=== PATIENT | male | born 1985 | race Caucasian/White ===

== ENCOUNTER 2016-07-27 07:47 | Emergency (ER) | payer SELFPAY ==
[~2016-07-27] VITALS: Ht 167.6 cm; Wt 80.3 kg
[2016-07-27 08:17] VITALS: BP 135/72
== END 2016-07-27 08:17 | disposition home or self-care (01) ==
LOC: ED 07:47
DX: H92.02 Otalgia, left ear (principal)

== ENCOUNTER 2016-09-10 17:26 | Emergency (ER) | payer SELFPAY ==
[~2016-09-10] VITALS: Ht 167.6 cm; Wt 78.0 kg
[2016-09-10 19:04] LABS: BASOPHIL % 0.5 % (0-2); PLATELET COUNT 194 x10^3mcL (130-400); RED CELL DISTRIBUTION WIDTH 14.1 % (11.5-14.5)
[2016-09-10 19:18] LABS: ALBUMIN 4.2 g/dL (3.4-5.0); ALKALINE PHOSPHATASE 52 U/L (46-116); ALT/SGPT 65 U/L (16-63); AST/SGOT 25 U/L (15-37); BILIRUBIN TOTAL 0.7 mg/dL (0.20-1.00); CALCIUM 9.5 mg/dL (8.5-10.1); CARBON DIOXIDE 28.1 mmol/L (21-32); CHLORIDE SERUM 103 mmol/L (98-107); CREATININE SERUM 1.1 mg/dL (0.7-1.3); GFR1 > 60 mL/min; GLUCOSE SERUM 100 mg/dL (74-106); LIPASE 154 IU/L (73-393); POTASSIUM SERUM 4.1 mmol/L (3.5-5.1); SODIUM SERUM 139 mmol/L (136-145); TOTAL PROTEIN, SERUM 7.8 g/dL (6.4-8.2)
[2016-09-10 19:31] LABS: UA SPECIFIC GRAVITY >=1.030 (1.005-1.035); microscopic required? YES; urine erythrocyte 3+ (NEGATIVE)
[2016-09-10 21:43] VITALS: BP 117/78
== END 2016-09-10 21:43 | disposition home or self-care (01) ==
LOC: ED 17:26
PROVIDERS: Emergency Medicine
DX: N20.1 Calculus of ureter (principal); Z87.442 Personal history of urinary calculi; Z79.899 Other long term (current) drug therapy
CPT/HCPCS: 36415; J1885

== ENCOUNTER 2016-11-08 04:21 | Emergency (ER) | payer SELFPAY ==
[2016-11-08 05:24] LABS: UA SPECIFIC GRAVITY 1.015 (1.005-1.035); microscopic required? YES; urine erythrocyte 3+ (NEGATIVE)
[2016-11-08 05:42] VITALS: BP 162/88
== END 2016-11-08 05:42 | disposition home or self-care (01) ==
LOC: ED 04:21
PROVIDERS: Emergency Medicine
DX: N23 Unspecified renal colic (principal)
CPT/HCPCS: J1885; Q0162

== ENCOUNTER 2016-12-24 06:44 | Emergency (ER) | payer MEDICAID ==
[2016-12-24 07:50] LABS: BASOPHIL % 0.4 % (0-2); PLATELET COUNT 191 x10^3mcL (130-400); RED CELL DISTRIBUTION WIDTH 13.9 % (11.5-14.5)
[2016-12-24 08:01] LABS: CALCIUM 8.9 mg/dL (8.5-10.1); CARBON DIOXIDE 26.3 mmol/L (21-32); CHLORIDE SERUM 105 mmol/L (98-107); CREATININE SERUM 1.2 mg/dL (0.7-1.3); GFR1 > 60 mL/min; GLUCOSE SERUM 109 mg/dL (74-106); POTASSIUM SERUM 4.3 mmol/L (3.5-5.1); SODIUM SERUM 138 mmol/L (136-145)
[2016-12-24 08:16] LABS: microscopic required? YES; urine erythrocyte 2+ (NEGATIVE)
[2016-12-24 10:47] VITALS: BP 112/79
== END 2016-12-24 10:47 | disposition home or self-care (01) ==
LOC: ED 06:44
PROVIDERS: Emergency Medicine Emergency Medical Services
DX: N20.2 Calculus of kidney with calculus of ureter (principal); Z87.442 Personal history of urinary calculi
CPT/HCPCS: J1885; J2270; J2405; J7030

== ENCOUNTER 2016-12-30 15:31 | Inpatient (IN) | payer MEDICAID ==
[~2016-12-30] VITALS: Ht 167.6 cm; Wt 81.0 kg
[2016-12-30 18:34] LABS: BASOPHIL % 0.4 % (0-2); PLATELET COUNT 207 x10^3mcL (130-400); RED CELL DISTRIBUTION WIDTH 14.3 % (11.5-14.5)
[2016-12-30 18:45] LABS: CALCIUM 9.1 mg/dL (8.5-10.1); CARBON DIOXIDE 29.6 mmol/L (21-32); CHLORIDE SERUM 106 mmol/L (98-107); CREATININE SERUM 1.1 mg/dL (0.7-1.3); GFR1 > 60 mL/min; GLUCOSE SERUM 92 mg/dL (74-106); POTASSIUM SERUM 4.4 mmol/L (3.5-5.1); SODIUM SERUM 140 mmol/L (136-145)
[2016-12-30 18:49] LABS: ALBUMIN 3.9 g/dL (3.4-5.0); ALKALINE PHOSPHATASE 42 U/L (46-116); ALT/SGPT 63 U/L (16-63); AMYLASE 56 U/L (25-115); AST/SGOT 25 U/L (15-37); BILIRUBIN TOTAL 0.52 mg/dL (0.20-1.00); LIPASE 203 IU/L (73-393); TOTAL PROTEIN, SERUM 7.6 g/dL (6.4-8.2)
[2016-12-30 18:50] VITALS: BP 130/87
[2016-12-30 19:12] LABS: MAGNESIUM 2.2 mg/dL (1.8-2.4); PHOSPHOROUS 3.2 mg/dL (2.5-4.9)
[2016-12-30 19:13] LABS: CHOLESTEROL/HDL RATIO 5.9
[2016-12-30 19:17] LABS: T3 TOTAL 0.98 ng/mL
[2016-12-30 19:23] LABS: AMPHETAMINE QUAL UR NONE DETECTED (NEG <=1000)
[2016-12-30 19:41] LABS: FREE T4 1.21 ng/dL (0.76-1.46); FREE THYROXINE INDEX 3.4 ug/dL (1.4-4.5); T4(THYROXINE) 9.2 ug/dL (4.7-13.3)
[2016-12-30 20:19] LABS: UA SPECIFIC GRAVITY 1.015 (1.005-1.035); microscopic required? YES; urine erythrocyte 3+ (NEGATIVE)
[2016-12-30 20:34] VITALS: BP 114/70
[2016-12-31 06:34] VITALS: BP 94/44
[2016-12-31 08:33] VITALS: BP 109/58
[2016-12-31 14:06] VITALS: BP 105/59
[2016-12-31 18:23] VITALS: BP 106/72
[2016-12-31 21:22] VITALS: BP 112/55
[2017-01-01 05:38] VITALS: BP 98/59
[2017-01-01 06:18] LABS: BASOPHIL % 0.6 % (0-2); PLATELET COUNT 187 x10^3mcL (130-400); RED CELL DISTRIBUTION WIDTH 13.5 % (11.5-14.5)
[2017-01-01 06:36] LABS: CARBON DIOXIDE 29.2 mmol/L (21-32); CHLORIDE SERUM 110 mmol/L (98-107); GFR1 > 60 mL/min; GLUCOSE SERUM 92 mg/dL (74-106); MAGNESIUM 2.2 mg/dL (1.8-2.4); PHOSPHOROUS 3.7 mg/dL (2.5-4.9); POTASSIUM SERUM 4.9 mmol/L (3.5-5.1); SODIUM SERUM 140 mmol/L (136-145)
[2017-01-01 08:55] VITALS: BP 123/78
[2017-01-01 17:20] VITALS: BP 118/68
[2017-01-01 21:31] VITALS: BP 123/80
[2017-01-02 05:39] VITALS: BP 109/63
[2017-01-02 05:57] LABS: BASOPHIL % 0.4 % (0-2); PLATELET COUNT 192 x10^3mcL (130-400)
[2017-01-02 06:26] LABS: CALCIUM 8.8 mg/dL (8.5-10.1); CARBON DIOXIDE 27.6 mmol/L (21-32); CHLORIDE SERUM 106 mmol/L (98-107); GFR1 > 60 mL/min; GLUCOSE SERUM 81 mg/dL (74-106); MAGNESIUM 2.2 mg/dL (1.8-2.4); PHOSPHOROUS 3.4 mg/dL (2.5-4.9); POTASSIUM SERUM 4.6 mmol/L (3.5-5.1); SODIUM SERUM 140 mmol/L (136-145)
[2017-01-02 07:19] VITALS: Ht 167.6 cm; Wt 81.0 kg
[2017-01-02 08:08] VITALS: BP 125/78
[2017-01-02 15:00] VITALS: BP 134/86
[2017-01-02 16:49] VITALS: BP 101/73
[2017-01-02 21:04] VITALS: BP 114/74
[2017-01-02 23:05] VITALS: BP 114/74
[2017-01-03 05:01] VITALS: BP 114/74; BP 120/76
[2017-01-03 06:35] LABS: BASOPHIL % 0.2 % (0-2); PLATELET COUNT 188 x10^3mcL (130-400); RED CELL DISTRIBUTION WIDTH 14.1 % (11.5-14.5)
[2017-01-03 07:02] LABS: CALCIUM 8.6 mg/dL (8.5-10.1); CARBON DIOXIDE 29.1 mmol/L (21-32); CHLORIDE SERUM 107 mmol/L (98-107); CREATININE SERUM 1.1 mg/dL (0.7-1.3); GFR1 > 60 mL/min; GLUCOSE SERUM 97 mg/dL (74-106); MAGNESIUM 2.3 mg/dL (1.8-2.4); PHOSPHOROUS 3.3 mg/dL (2.5-4.9); POTASSIUM SERUM 4.8 mmol/L (3.5-5.1); SODIUM SERUM 140 mmol/L (136-145)
[2017-01-03 09:24] VITALS: BP 105/71
[2017-01-03] MEDS ORDERED: LIPI10 PO ×2 (12:03→14:39)
[2017-01-03] MEDS ORDERED: NORCO1 TA2 PO (12:08)
[2017-01-03] MEDS ORDERED: IBUPROFEN400 MG PO ×2 (12:11→14:39)
[2017-01-03] MEDS ORDERED: COL100 PO ×2 (12:14→14:39)
[2017-01-03] MEDS ORDERED: PYR100 PO ×2 (12:15→14:39)
[2017-01-03] MEDS ORDERED: LAC PO ×2 (12:18→14:39)
[2017-01-03] MEDS ORDERED: LEV250 PO ×2 (12:18→14:39)
[2017-01-03] MEDS ORDERED: FLO4 PO ×2 (12:19→14:39)
[2017-01-03 13:05] VITALS: BP 105/71
== END 2017-01-03 14:47 | disposition home or self-care (01) | DRG 446 ==
LOC: ED 15:31 → MU 17:52 → DU 17:52 → MU 12-31 07:52
PROVIDERS: Emergency Medicine; Family Medicine; Urology; ADMIT Family Medicine Sports Medicine
PROC: 0T768DZ Dilation of Right Ureter with Intraluminal Device, Via Natural or Artificial Opening Endoscopic (ICD-10-PCS; 2017-01-02)
PROC: 0TC38ZZ Extirpation of Matter from Right Kidney Pelvis, Via Natural or Artificial Opening Endoscopic (ICD-10-PCS; principal; 2017-01-02 12:00)
DX: N13.2 Hydronephrosis with renal and ureteral calculous obstruction (principal); E87.8 Other disorders of electrolyte and fluid balance, not elsewhere classified; E83.51 Hypocalcemia; D64.9 Anemia, unspecified; R73.03 Prediabetes; E78.5 Hyperlipidemia, unspecified; R31.9 Hematuria, unspecified; Z87.442 Personal history of urinary calculi; Z68.28 Body mass index [BMI] 28.0-28.9, adult; Z87.891 Personal history of nicotine dependence
CPT/HCPCS: 83880; 84439; 90658; 94150; C1758; C2625; J0690; J1170; J1885; J2250; J2270; J2405; J2704; J3010; J3490; J7030; J7120; Q0092; Q9967